=== PATIENT | male | born 1940 | race Two or more races ===

== ENCOUNTER 2019-09-08 21:09 | Inpatient (IN) | payer BC, MEDICARE ==
[~2019-09-08] VITALS: Ht 170.2 cm; Wt 73.1 kg
[2019-09-08] MEDS ORDERED: SODIUM CHLORIDE 0.9% 500 ML IV ONE (21:45)
[2019-09-08 23:20] LABS: BASOPHILS % 0.4 % (0.0-2.0); EOSINOPHILS % 0.3 % (0.0-5.0); HEMATOCRIT. 36.9 % (42.0-52.0); HEMOGLOBIN. 11.7 g/dL (14.0-18.0); LYMPHOCYTES % 7.8 % (20.0-50.0); MEAN CORPUSCULAR HEMOGLOBIN 22.2 pg (28.0-32.0); MEAN CORPUSCULAR VOLUME 70.2 fL (80.0-94.0); MEAN PLATELET VOLUME 7.8 fl (7.4-10.4); MONOCYTES % 7.1 % (2.0-8.0); NEUTROPHILS % 84.4 % (40.0-76.0); PLATELET 221 x1000/uL (130-400); RED BLOOD CELL COUNT 5.25 mill/uL (4.7-6.1); RED CELL DISTRIBUTION WIDTH 15.1 % (11.6-14.6)
[2019-09-08 23:24] LABS: CHLORIDE 113 mEq/L (98-107)
[2019-09-08 23:25] LABS: PARTIAL THROMBOPLASTIN TIME 24.5 sec (23.4-31.0); PROTHROMBIN TIME 10.7 sec (9.6-11.0)
[2019-09-08] MEDS ORDERED: FAMOTIDINE 20MG/2ML VIAL IV SCH (23:45)
[2019-09-08] MEDS ORDERED: ONDANSETRON HCL 4MG/2ML INJ IV SCH (23:45)
[2019-09-08] MEDS ORDERED: PANTOPRAZOLE SODIUM 40 MG/VIAL IV SCH (23:45)
[2019-09-09] VITALS (34 sets, daily range): BP systolic 73–152; BP diastolic 42–89
[2019-09-09 00:53] LABS: CLARITY URINE CLEAR (CLEAR); COLOR URINE YELLOW (YELLOW); KETONES URINE 1+ (NEGATIVE); LEUKOCYTE ESTERASE URINE NEGATIVE (NEGATIVE); NITRITE URINE NEGATIVE (NEGATIVE); OCCULT BLOOD URINE NEGATIVE (NEGATIVE); PROTEIN URINE NEGATIVE (NEGATIVE); SPECIFIC GRAVITY URINE 1.026 (1.005-1.030); UROBILINOGEN URINE 0.2 E.U./dL (0.2-1.0)
[2019-09-09] MEDS ORDERED: LORAZEPAM 2MG/ML CPJ IV ONE (01:30)
[2019-09-09] MEDS ORDERED: HALOPERIDOL LACTATE 5MG/ML VIAL IM ONE (01:30)
[2019-09-09] MEDS ORDERED: MAGNESIUM/ALUMINUM HYDROXIDE/SIMETHICONE 30ML UDC PO PRN (02:45)
[2019-09-09] MEDS ORDERED: CLONIDINE 0.1MG TABLET PO PRN (02:45)
[2019-09-09] MEDS ORDERED: ONDANSETRON HCL 4MG/2ML INJ IV PRN (02:45)
[2019-09-09] MEDS ORDERED: ACETAMINOPHEN 325MG TABLET PO PRN (02:45)
[2019-09-09] MEDS: DEXT 5%/0.45% NACL 1000ML 1,000 ML IV SCH ×2 (05:31→19:20)
[2019-09-09] MEDS ORDERED: ACETAMINOPHEN 650MG SUPP PR ONE (08:45)
[2019-09-09] MEDS ORDERED: ACETAMINOPHEN 650MG SUPP PR NR (09:45)
[2019-09-09] MEDS: METOPROLOL TARTRATE 25MG TABLET PO SCH ×2 (10:01→20:52)
[2019-09-09] MEDS: PANTOPRAZOLE SODIUM 40 MG/VIAL IV SCH (10:24)
[2019-09-09 10:26] LABS: HEMATOCRIT. 35.4 % (42.0-52.0); MEAN CORPUSCULAR HEMOGLOBIN 21.8 pg (28.0-32.0); MEAN CORPUSCULAR VOLUME 70.3 fL (80.0-94.0); MEAN PLATELET VOLUME 7.3 fl (7.4-10.4); PLATELET 224 x1000/uL (130-400); RED BLOOD CELL COUNT 5.03 mill/uL (4.7-6.1); RED CELL DISTRIBUTION WIDTH 15.4 % (11.6-14.6)
[2019-09-09 10:33] LABS: CHLORIDE 113 mEq/L (98-107)
[2019-09-09 10:39] LABS: TOTAL IRON BINDING CAPACITY 317 ug/dL (250-450)
[2019-09-09 10:42] LABS: PLATELET ESTIMATE NORMAL
[2019-09-09] MEDS ORDERED: DILTIAZEM HCL 5MG/ML 5ML VIAL IV NR (10:45)
[2019-09-09] MEDS ORDERED: DONE10TA36 MT (13:47)
[2019-09-09] MEDS ORDERED: CHOL100046 (13:47)
[2019-09-09] MEDS ORDERED: ASCO-316 PO (13:47)
[2019-09-09] MEDS ORDERED: VITAMIN B12 PO (13:47)
[2019-09-09] MEDS ORDERED: LOVA10TA54 MT (13:47)
[2019-09-09] MEDS ORDERED: ASPI-1497 MT (13:47)
[2019-09-09] MEDS ORDERED: SODIUM CHLORIDE 0.9% 500 ML IV NR ×2 (16:00)
[2019-09-09 16:58] LABS: HEMATOCRIT 24.7 % (42.0-52.0); HEMOGLOBIN 7.6 g/dL (14.0-18.0)
[2019-09-09] MEDS ORDERED: PHENYLEPHRINE 20 MG in DEXT 5% WATER 248 ML IV PRN (22:00)
[2019-09-10] VITALS (41 sets, daily range): BP systolic 95–171; BP diastolic 51–127
[2019-09-10 07:09] LABS: BASOPHILS % 0.5 % (0.0-2.0); EOSINOPHILS % 0.3 % (0.0-5.0); HEMATOCRIT. 31.7 % (42.0-52.0); HEMOGLOBIN. 10.2 g/dL (14.0-18.0); LYMPHOCYTES % 13.2 % (20.0-50.0); MEAN CORPUSCULAR HEMOGLOBIN 25.6 pg (28.0-32.0); MEAN CORPUSCULAR VOLUME 79.4 fL (80.0-94.0); MEAN PLATELET VOLUME 8.1 fl (7.4-10.4); MONOCYTES % 7.7 % (2.0-8.0); NEUTROPHILS % 78.3 % (40.0-76.0); PLATELET 179 x1000/uL (130-400); RED BLOOD CELL COUNT 3.99 mill/uL (4.7-6.1); RED CELL DISTRIBUTION WIDTH 19.7 % (11.6-14.6)
[2019-09-10 07:42] LABS: CHLORIDE 116 mEq/L (98-107)
[2019-09-10] MEDS: METOPROLOL TARTRATE 25MG TABLET PO SCH ×2 (09:00→21:00)
[2019-09-10] MEDS: PANTOPRAZOLE SODIUM 40 MG/VIAL IV SCH (09:12)
[2019-09-10] MEDS: DEXT 5%/0.45% NACL 1000ML 1,000 ML IV SCH ×2 (09:12→22:25)
[2019-09-10 12:08] LABS: HEMATOCRIT 27.8 % (42.0-52.0); HEMOGLOBIN 9.3 g/dL (14.0-18.0)
[2019-09-10] MEDS ORDERED: SODIUM BICARBONATE 4% (2.4MEQ) 5ML VIAL IV ONE (12:35)
[2019-09-10] MEDS ORDERED: LIDOCAINE HCL 1% 20ML VIAL (Pyxis) INJ ONE (12:35)
[2019-09-10 18:31] LABS: HEMATOCRIT 28.8 % (42.0-52.0); HEMOGLOBIN 9.6 g/dL (14.0-18.0)
[2019-09-10] MEDS ORDERED: HYDRALAZINE 20MG/ML VIAL IV PRN (21:30)
[2019-09-11] VITALS (26 sets, daily range): BP systolic 88–142; BP diastolic 51–80
[2019-09-11] MEDS ORDERED: HYDRALAZINE 20MG/ML VIAL IV SCH
[2019-09-11 01:28] LABS: HEMATOCRIT 26.3 % (42.0-52.0); HEMOGLOBIN 8.6 g/dL (14.0-18.0)
[2019-09-11 07:45] LABS: BASOPHILS % 0.7 % (0.0-2.0); EOSINOPHILS % 1.2 % (0.0-5.0); HEMATOCRIT. 26.2 % (42.0-52.0); HEMOGLOBIN. 8.6 g/dL (14.0-18.0); LYMPHOCYTES % 9.7 % (20.0-50.0); MEAN CORPUSCULAR HEMOGLOBIN 25.2 pg (28.0-32.0); MEAN CORPUSCULAR VOLUME 76.5 fL (80.0-94.0); MEAN PLATELET VOLUME 7.7 fl (7.4-10.4); MONOCYTES % 9.1 % (2.0-8.0); NEUTROPHILS % 79.3 % (40.0-76.0); PLATELET 161 x1000/uL (130-400); RED BLOOD CELL COUNT 3.43 mill/uL (4.7-6.1); RED CELL DISTRIBUTION WIDTH 20.1 % (11.6-14.6)
[2019-09-11 07:46] LABS: CHLORIDE 110 mEq/L (98-107)
[2019-09-11] MEDS: PANTOPRAZOLE SODIUM 40 MG/VIAL IV SCH (09:24)
[2019-09-11] MEDS: METOPROLOL TARTRATE 25MG TABLET PO SCH ×2 (09:25→21:46)
[2019-09-11] MEDS: DEXT 5%/0.45% NACL 1000ML 1,000 ML IV SCH (12:46)
[2019-09-12] VITALS (40 sets, daily range): BP systolic 102–175; BP diastolic 54–96
[2019-09-12] MEDS: DEXT 5%/0.45% NACL 1000ML 1,000 ML IV SCH ×2 (01:33→14:46)
[2019-09-12 07:13] LABS: BASOPHILS % 0.6 % (0.0-2.0); EOSINOPHILS % 1.9 % (0.0-5.0); HEMATOCRIT. 26.6 % (42.0-52.0); HEMOGLOBIN. 8.9 g/dL (14.0-18.0); LYMPHOCYTES % 13.1 % (20.0-50.0); MEAN CORPUSCULAR HEMOGLOBIN 26.1 pg (28.0-32.0); MEAN CORPUSCULAR VOLUME 78.2 fL (80.0-94.0); MEAN PLATELET VOLUME 7.7 fl (7.4-10.4); MONOCYTES % 7.8 % (2.0-8.0); NEUTROPHILS % 76.6 % (40.0-76.0); PLATELET 183 x1000/uL (130-400)
[2019-09-12 08:06] LABS: CHLORIDE 110 mEq/L (98-107)
[2019-09-12] MEDS: PANTOPRAZOLE SODIUM 40 MG/VIAL IV SCH (08:09)
[2019-09-12] MEDS: METOPROLOL TARTRATE 25MG TABLET PO SCH ×2 (08:11→21:07)
[2019-09-13] VITALS (9 sets, daily range): BP systolic 101–150; BP diastolic 62–91
[2019-09-13] MEDS: DEXT 5%/0.45% NACL 1000ML 1,000 ML IV SCH (05:48)
[2019-09-13] MEDS: METOPROLOL TARTRATE 25MG TABLET PO SCH (09:38)
[2019-09-13] MEDS: PANTOPRAZOLE SODIUM 40 MG/VIAL IV SCH (09:38)
[2019-09-13] MEDS ORDERED: PROT40 MT (11:27)
== END 2019-09-13 15:30 | disposition home or self-care (01) | DRG 377 ==
LOC: ER 21:09 → 5EST 09-09 00:33 → EDBEDREQ 09-09 00:35 → EDBEDREQSVC 09-09 00:35 → EDBEDREQTM 09-09 00:35 → EDBEDREQDT 09-09 00:35 → EDBEDREQSVC 09-09 06:02 → EDBEDREQTM 09-09 06:02 → ENRESERV 09-09 10:22 → 5EST 09-09 23:30
PROVIDERS: ADMIT Hospitalist; ATTEND Hospitalist
PROC: 30233N1 Transfusion of Nonautologous Red Blood Cells into Peripheral Vein, Percutaneous Approach (ICD-10-PCS; 2019-09-09)
PROC: 02HV33Z Insertion of Infusion Device into Superior Vena Cava, Percutaneous Approach (ICD-10-PCS; principal; 2019-09-10)
PROC: B548ZZA Ultrasonography of Superior Vena Cava, Guidance (ICD-10-PCS; 2019-09-10)
DX: K92.1 Melena (principal); E43 Unspecified severe protein-calorie malnutrition; R57.1 Hypovolemic shock; D62 Acute posthemorrhagic anemia; K92.0 Hematemesis; E78.00 Pure hypercholesterolemia, unspecified; F03.90 Unspecified dementia, unspecified severity, without behavioral disturbance, psychotic disturbance, mood disturbance, and anxiety; I10 Essential (primary) hypertension; Z78.1 Physical restraint status; Z68.25 Body mass index [BMI] 25.0-25.9, adult
CPT/HCPCS: 36415; 71045; 76937; 78278; 80053; 81003; 82728; 83540; 83550; 83880; 84484; 85014; 85018; 85025; 86850; 86900; 86920; 92610; 93005; 93970; 99285; A9560; C1725; C9113; J0360; J1630; J2060; J2405; J3490; J7040; P9016